=== PATIENT | female | born 1985 | race Caucasian/White ===

== ENCOUNTER → 2016-04-16 | Outpatient (CLI) | payer BC ==
[~2016-04-16] MED LIST: CEPHALEXIN500 M1 PO; IBU800 M1 PO; MOTRIN 600600 MG/TAB PO; MOTRIN 800800 MG/TAB PO; NO HOME MEDICATIONS; PERCOCET 325 MG1 TA2 PO; PRENATAL1 TA1 PO; SENOKOT S 50 MG1 TAB PO
== END ==
LOC: COL.VAS 14:05
DX: I82.412 Acute embolism and thrombosis of left femoral vein (principal); M79.652 Pain in left thigh; M79.89 Other specified soft tissue disorders; Z33.1 Pregnant state, incidental; Z3A.35 35 weeks gestation of pregnancy

== ENCOUNTER 2016-05-22 05:20 | Inpatient (IN) | payer BC ==
[~2016-05-22] VITALS: Ht 160 cm; Wt 85.9 kg
[2016-05-22] VITALS (26 sets, daily range): BP systolic 100–142; BP diastolic 52–78; PULSE 66–110; TEMP 97.7–98.6
[~2016-05-22 05:20] MED LIST changes: -IBU800 M1 PO
[2016-05-22 06:50] LABS: BASO # 0.1 (0.0-0.2); BASO % 0.6 % (0.0-2.0); EOS # 0.1 (0.0-0.7); EOS % 1.2 % (0-4.0); GRAN # 8.5 (1.4-6.5); GRAN % 74.7 % (42.2-75.2); HEMOGLOBIN 12.3 g/dl (12.5-16.0); LYMPH # 1.7 (1.2-3.4); LYMPH % 15.2 % (20.0-51.0); MEAN CELL VOLUME 89 fl (80.0-100.0); MEAN CORPUSCULAR HEMOGLOBIN 30 pg (27.0-31.0); MEAN CORPUSCULAR HGB CONC 34 g/dl (33.0-37.0); MONO # 0.9 (0.1-0.6); MONO % 7.8 % (1.7-9.3); PLATELET COUNT 153 K/mm3 (130-400); REDCELL DISTRIBUTION WIDTH-CV 13.2 % (11.5-14.5); WHITE BLOOD COUNT 11.3 K/mm3 (4.8-10.8)
[2016-05-22 06:53] LABS: HEMATOCRIT 36.3 % (37.0-47.0)
[2016-05-23 01:00] VITALS: BP 105/62; PULSE 81; TEMP 97.8
[2016-05-23 07:15] VITALS: BP 121/66; PULSE 81; TEMP 97.2
[2016-05-23] MEDS ORDERED: IBU800 M1 PO (08:08)
[2016-05-23 16:00] VITALS: BP 115/76; PULSE 77; TEMP 97.7
[2016-05-23 22:05] VITALS: BP 114/63; PULSE 70; TEMP 98
[2016-05-24 09:30] VITALS: BP 115/64; PULSE 72; TEMP 97.6
== END 2016-05-24 13:40 | disposition home or self-care (01) | DRG 775 ==
LOC: LDRO 05:20 → LDR 06:23 → OB 13:30
PROVIDERS: Obstetrics & Gynecology
PROC: 10D07Z6 Extraction of Products of Conception, Vacuum, Via Natural or Artificial Opening (ICD-10-PCS; principal; 2016-05-22)
PROC: 0HQ9XZZ Repair Perineum Skin, External Approach (ICD-10-PCS; 2016-05-22)
DX: O48.0 Post-term pregnancy (principal); O99.824 Streptococcus B carrier state complicating childbirth; O77.0 Labor and delivery complicated by meconium in amniotic fluid; O69.81X0 Labor and delivery complicated by cord around neck, without compression, not applicable or unspecified; O32.8XX0 Maternal care for other malpresentation of fetus, not applicable or unspecified; O70.0 First degree perineal laceration during delivery; Z3A.40 40 weeks gestation of pregnancy; Z37.0 Single live birth
CPT/HCPCS: J2540; J2590; J7120

== ENCOUNTER 2020-02-28 10:37 | Inpatient (IN) | payer BC ==
[~2020-02-28] VITALS: Ht 160 cm; Wt 90.5 kg
[2020-02-28] VITALS (45 sets, daily range): BP systolic 96–133; BP diastolic 55–92; PULSE 72–96; TEMP 97.2–98.3
[~2020-02-28 10:37] MED LIST changes: +IBU800 M1 PO
--- NOTE | 2020-02-28 10:50 | NUR ---
1050- PATIENT AMBULATORY TO THE UNIT WITH BY HER SIDE. ORIENATED TO ROOM AND CHANGED INTO [place]. REPORTS GFM, NO LOF, RARE CTX AND NO BLEEDING. PT IS A PATIENT OF DR. BOLTON AT 39.0 HERE FOR AN INDUCTION. 1056- EFM AND TOCO ON AND TRACING. VITALS TAKEN, ASSESSMENT COMPLETED, IV STARTED. CONSENTS SIGNED.
--- NOTE | 2020-02-28 11:50 | NUR ---
1150- DR. BOLTON AND THIS RN TO BEDSIDE FOR SVE AND AROM. 1152- AROM, SMALL AMOUNT OF CLEAR FLUID NOTED. SVE WAS /-3. DISCUSSED PLAN OF CARE WITH PATIENT AND ANSWERED ANY QUESTIONS. CALL LIGHT WITHIN REACH. PATIENT DENIES FURTHER NEEDS
[2020-02-28 12:52] LABS: BASO # 0.1 (0.0-0.2); BASO % 0.7 % (0.0-2.0); EOS # 0.2 (0.0-0.7); GRAN # 5.1 (1.4-6.5); GRAN % 66.8 % (42.2-75.2); HEMOGLOBIN 11.5 g/dl (12.5-16.0); LYMPH # 1.6 (1.2-3.4); LYMPH % 20.9 % (20.0-51.0); MEAN CELL VOLUME 91 fl (80.0-100.0); MEAN CORPUSCULAR HEMOGLOBIN 31 pg (27.0-31.0); MEAN CORPUSCULAR HGB CONC 34 g/dl (33.0-37.0); MONO # 0.6 (0.1-0.6); MONO % 8.2 % (1.7-9.3); PLATELET COUNT 181 K/mm3 (130-400); RED BLOOD COUNT 3.69 M/mm3 (4.10-5.30); REDCELL DISTRIBUTION WIDTH-CV 12.9 % (11.5-14.5)
[2020-02-28 12:57] LABS: HEMATOCRIT 33.7 % (37.0-47.0)
--- NOTE | 2020-02-28 16:05 | NUR ---
1605- THIS RN TO BEDSIDE TO START PEN G DOSE #2. DISCUSSED DR. BOLTON COMING TO DO SVE BEFORE HE LEAVES THE UNIT. 161- DR. BOLTON TO BEDSIDE FOR SVE. 1615- SVE . DR. BOLTON GAVE THIS RN A VERBAL ORDER TO INCREASE TO 30 ON THE PITOCIN BUT CAN START THAT AFTER SHE GETS BLOCKED THE PATIENT WAS REQUESTING HER EPIDURAL AT THIS TIME WELL. THIS RN REPEATED ORDERS AND VERBALIZED UNDERSTANDING. THIS RN LET ANESTHESIA KNOW THAT THE PATIENT WAS READY FOR HER EPIDURAL AT THIS TIME WELL.
--- NOTE | 2020-02-28 16:20 | NUR ---
1620- THIS RN TO BEDSIDE TO GIVE FLUID BOLUS AND GET PATIENT READY FOR EPIDURAL PLACEMENT. RN REMAINS AT BEDSIDE. 1625- ECHO PATRICK TO BEDSIDE FOR EPIDURAL PLACEMENT. MATERNAL 02 SAT ON AND TRACING. PATIENT SAT ON SIDE OF BED. RN REMAINS AT BEDSIDE. 1644- TEST DOSE, SEE ANESTHESIA RECORD. THIS RN HELPED GET PATIENT BACK IN BED AND WL POSITION. THIS RN REMAINS AT BEDSIDE.
--- NOTE | 2020-02-28 18:55 | NUR ---
SVE /-2, bloody show noted. Pt repositioned in bed for comfort. Plan of care reviewed with patient, denies needs or questions at this time.
--- NOTE | 2020-02-28 19:33 | NUR ---
Recurrent late decelerations noted after contractions. Pt repositioned to far left lateral with pillow support.
--- NOTE | 2020-02-28 20:00 | NUR ---
SVE complete/-2, plan of care reviewed with patient and spouse. 2009 - dose of pen G started.
--- NOTE | 2020-02-28 21:05 | NUR ---
2104 - Pt positioned back into lithotomy position to begin pushing again. 2129 - Pt pushing well with contractions. Very little progress being made with babys position.
--- NOTE | 2020-02-28 21:53 | NUR ---
2139 - Dr. Hess at bedside to evaluate pushing. Discussing a vacuum extraction with patient and spouse. Risks and benefits reviewed, pt agreeable at this time. Charge nurse and nursery nurse notified. Room set up for delivery. 2142 - Dr. Hess gowned and gloved at perineum. Straight cath at this time. Vacuum applied successfully. 2146 - Vacuum pumped to green, gentle traction applied to vacuum by Dr. Hess while patient continues to push. Pressure released after contraction. 2148 - Vacuum pumped to green, gentle traction applied to vacuum by Dr. Hess while patient continues to push. Pressure released after contraction. 2151 - Vacuum pumped to green, gentle traction applied to vacuum by Dr. Hess while patient continues to push. Large crown, vacuum pressure released and removed. 2152 - Pt pushed to deliver viable boy. Infant bulb suctioned by Dr. Hess. Cord clamped x [address] Hess[address] to mother's abdomen, care of assumed to GAIL Mata. Pitocin off. Cord blood obtained. 2155 - Spontaneous delivery of intact placenta. Pitocin restarted at 333 mu/min per protocol. Vaginal laceration repaired by Dr. Hess. Fundal massage by this RN, free flow bleeding with few medium sized clots. Verbal orders from Dr. Hess to give IM methergine if free flow bleeding continues with fundal checks. Epidural off. 2204 - Pericare provided. New chux beneath patient. Ice pack to perineum. Pt repositioned in bed for comfort. recovery started. See physician delivery note.
[2020-02-29] VITALS (7 sets, daily range): BP systolic 111–132; BP diastolic 46–73; PULSE 66–80; TEMP 97.7–98.3
--- NOTE | 2020-02-29 01:40 | NUR ---
Pt unable to lift and hold left leg off of bed for 5 seconds. Straight catheter at this time, 900 cc yellow urine returned. Fundus firm and at umbilicus, scant bleeding noted. Pericare provided. Mesh panties and peripad applied. New clean gown on. Pt pivoted to wheelchair with 2 person assistance. Transferred to room 214 with and belongings.
--- NOTE | 2020-02-29 09:34 | NUR ---
Initial visit; Parents thanked [employer] for offering congratulations and God's blessings for the of their son. [employer] thanked family for choosing [facility].
--- NOTE | 2020-02-29 09:42 | NUR ---
0855 Nida FALLON RN NOTIFIED THIS RN THAT PATIENT CALLED OUT FOR ASSISTANCE. THIS RN ASKED Nida FALLON RN TO PLEASE ASSIST PATIENT THIS RN WAS IN ANOTHER PATIENT ROOM. 09 Nida FALLON RN NOTIFIED THIS RN THAT PATIENT REQUESTED HELP WITH GETTING BABE OUT OF CRIB. Nida FALLON RN ASKED PATIENT HOW SHE WAS GETTING TO THE BATHROOM. PATIENT RESPONDED "I ASK FOR HELP OR I FALL". 0915 THIS RN IN PATIENT ROOM TO CHECK ON HER. WHEN PATIENT WAS ASKED ABOUT HER COMMENT TO Nida FALLON RN PATIENT VERBALIZED THAT SHE DID FALL THIS AM. PATIENT REPORTS THAT SHE CALLED OUT RIGHT AFTER, ASKING FOR HER IV TO BE TAKEN OUT BECAUSE SHE HAD FELL ON IT AND HURT. THIS RN ASKED PT WHAT TIME SHE FELL AND CALLED OUT, PT STATES "BEFORE YOU GOT HERE, I THINK YOU WERE PROBABLY IN YOUR MEETING". PT STATES THAT HER HELPED HER INTO THE BATHROOM AND SHE "THOUGHT" SHE WAS FINE THEN WHEN SHE STOOD UP HER LEFT LEG GAVE OUT AND SHE FELL IN THE BATHROOM. WHEN QUESTIONED IF SHE HIT OR HURT ANYTHING PATIENT REPORTS NO AND DENIES ANY PAIN SINCE THE FALL. PATIENT STATES "I'M FINE". PATIENT EDUCATED THAT UNTIL WE KNOW THAT HER LEFT LEG IS WORKING PROPERLY SHE NEEDS TO CALL FOR ASSISTANCE. PATIENT VERBALIZED UNDERDSTANDING AND STATES "YES, THAT'S WHY I AM AFRAID OF PICKING HIM UP" SHE WAS POINTING TO THE BABY.
[2020-03-01] MEDS ORDERED: MOTRIN 800800 MG/TAB PO (08:40)
[2020-03-01 09:00] VITALS: BP 120/68; PULSE 66; TEMP 97.4
--- NOTE | 2020-03-01 09:15 | NUR ---
Attempts to breastfeed baby. Baby sleepy. domestic travel consultant here, visits with patient.
--- NOTE | 2020-03-01 14:00 | NUR ---
Rests in bed, alert. Discharge instructions given, verbalizes understanding.
== END 2020-03-01 14:00 | disposition home or self-care (01) | DRG 807 ==
LOC: LDR 10:37 → OB 02-29 02:20
PROVIDERS: ADMIT Obstetrics & Gynecology
PROC: 10D07Z6 Extraction of Products of Conception, Vacuum, Via Natural or Artificial Opening (ICD-10-PCS; principal; 2020-02-28)
PROC: 10907ZC Drainage of Amniotic Fluid, Therapeutic from Products of Conception, Via Natural or Artificial Opening (ICD-10-PCS; 2020-02-28)
PROC: 0UQGXZZ Repair Vagina, External Approach (ICD-10-PCS; 2020-02-28)
DX: O99.824 Streptococcus B carrier state complicating childbirth (principal); Z37.0 Single live birth; O71.4 Obstetric high vaginal laceration alone; Z3A.39 39 weeks gestation of pregnancy
CPT/HCPCS: J2210; J2540; J2590; J7120

== ENCOUNTER → 2023-03-14 | Outpatient (CLI) | payer BC | LOC: MC.RAD 10:01 | DX: Z12.31 Encounter for screening mammogram for malignant neoplasm of breast (principal) ==